=== PATIENT | female | born 1980 | race Caucasian/White ===

== ENCOUNTER 2019-08-09 10:16 | Emergency (ER) | payer BC ==
--- NOTE | 2019-08-09 11:44 | UC ---
Skin Complaint HPI - HPI Summary HPI Summary: THINKS SHE WAS BITTEN BY A BUG FEW DAYS AGO. HAS A PAINFUL RED LUMP ON HER RIGHT LOW BACK. STATES THE WHOLE AREA IS UNCOMFORTABLE. HAS OVERALL MALAISE. NO MEASURED FEVER AT HOME BUT FOUND TO HAVE TEMPERATURE 100.2 HERE IN THE UC. - History of Current Complaint Chief Complaint: UCSkin Time Seen by Provider: 08/09/19 10:51 Stated Complaint: SKIN ISSUE Hx Obtained From: Patient Hx Last Menstrual Period: IUD Onset/Duration: Gradual Onset, Lasting Days, Still Present Timing: Constant Onset Severity: Moderate Current Severity: Moderate Pain Intensity: 0 Pain Scale Used: 0-10 Numeric Character: Pain, Redness, Raised Aggravating Factor(s): Touch Alleviating Factor(s): Nothing - Allergy/Home Medications Allergies/Adverse Reactions: Allergies Allergy/AdvReac Type Severity Reaction Status Date / Time azithromycin Allergy Hives Verified 08/09/19 10:54 Penicillins Allergy Hives Verified 08/09/19 10:49 PMH/Surg Hx/FS Hx/Imm Hx Previously Healthy: Yes - Surgical History Surgical History: Yes Surgery Procedure, Year, and Place: wisdom teeth. laser eye - Family History Known Family History: Positive: Non-Contributory - Social History Alcohol Use: Rare Substance Use Type: None Smoking Status (MU): Never Smoked Tobacco Review of Systems All Other Systems Reviewed And Are Negative: Yes Constitutional: Positive: Other - GENERAL MALAISE Skin: Positive: Other - ERYTHEMA AND INDURATIONS LOW BACK Respiratory: Positive: Negative Cardiovascular: Positive: Negative Gastrointestinal: Positive: Negative Physical Exam Triage Information Reviewed: Yes Appearance: Well-Appearing, No Pain Distress, Well-Nourished Vital Signs: Initial Vital Signs Temp 100.2 F 08/09/19 10:43 Pulse 82 08/09/19 10:43 Resp 12 08/09/19 10:43 BP 134/80 08/09/19 10:43 Pulse Ox 99 08/09/19 10:43 Vital Signs Reviewed: Yes Eyes: Positive: Conjunctiva Clear ENT: Positive: Hearing grossly normal Neck: Positive: Supple Respiratory: Positive: No respiratory distress, No accessory muscle use Cardiovascular: Positive: Pulses Normal Abdomen Description: Positive: Soft Musculoskeletal: Positive: No Edema Neurological: Positive: Alert Psychological: Positive: Age Appropriate Behavior Skin: Positive: Other - 6CM AREA OF ERYTHEMA WITH CENTRALLY LOCATED 1.5CM AREA OF INDURATION RIGHT LOW BACK. TENDER. NO FLUCTUANCE. NO DRAINAGE Course/Dx - Diagnoses Provider Diagnosis: Cellulitis of lower back Discharge ED - Sign-Out/Discharge Documenting (check all that apply): Patient Departure All imaging exams completed and their final reports reviewed: No Studies - Discharge Plan Condition: Stable Disposition: HOME Prescriptions: Sulfamethox/Trimethoprim DS* [Bactrim DS 800/160 TAB*] 1 tab PO BID #20 tab Patient Education Materials: Cellulitis (ED) Referrals: [facility] [Outside] - If Needed Additional Instructions: WARM/HOT COMPRESSES AT LEAST 3-4 TIMES DAILY SEEK FOLLOW-UP IF AFTER 2-3 DAYS ON ANTIBIOTICS YOU HAVE CONTINUING SPREADING REDNESS OF THE SKIN, FEVER, INCREASED PAIN OR ANY OTHER CONCERNING SYMPTOMS. CALL THE NUMBER BELOW FOR ASSISTANCE IN ESTABLISHING WITH A PCP An additional resource available to assist in finding the appropriate physician for your health care needs is [facility] ([facility]). You may contact them by calling [phone]. - Billing Disposition and Condition Condition: STABLE Disposition: Home
== END 2019-08-09 11:36 | disposition home or self-care (01) ==
LOC: UCEAST 10:16
DX: L03.312 Cellulitis of back [any part except buttock and flank] (principal); Z88.0 Allergy status to penicillin
CPT/HCPCS: 99202; G0463